=== PATIENT | female | born 1955 | race Two or more races ===

== ENCOUNTER 2019-01-01 06:43 | Day surgery (SDC) | payer OTHER ==
[~2019-01-01 06:43] MED LIST: CLONAZEPAM0.5 MG PO; CULTURELLE CHE1 EACH PO; LAMOTRIGINE50 MG PO; LEVOTHYROXINE25 MCG PO; TYLENOL EXTRA500 MG PO
[2019-01-01] MEDS ORDERED: ULTRACET PO (09:18)
== END 2019-01-01 14:36 | disposition home or self-care (01) ==
LOC: CIR.AMB 06:43 → ADM 11:45 → CIR.AMB 11:45
DX: A63.0 Anogenital (venereal) warts (principal); L29.0 Pruritus ani

== ENCOUNTER 2019-02-10 15:20 | Outpatient (CLI) | payer OTHER ==
[~2019-02-10 15:20] MED LIST changes: +ULTRACET PO
== END 2019-02-10 15:22 | disposition home or self-care (01) ==
LOC: RAD 15:20
DX: M25.511 Pain in right shoulder (principal)